=== PATIENT | male | born 1970 | race Caucasian/White ===

== ENCOUNTER 2016-05-05 06:56 | Emergency (ER) | payer MEDICARE ==
[2016-05-05] MEDS ORDERED: cefTRIAXone 2 GM, Lidocaine 1% 4.2 ML IM ONE ×2 (07:20)
--- NOTE | 2016-05-05 07:22 | EDM.PDOC ---
ED HPI GENERAL MEDICAL PROBLEM - General Chief Complaint: General Stated Complaint: abscessed tooth Time Seen by Provider: 05/05/16 07:15 Source of Information: Reports: Patient History Limitations: Reports: No limitations - History of Present Illness INITIAL COMMENTS - FREE TEXT/NARRATIVE: Patient states face and jaw pain started on Tuesday and has progressively worsened. He also states diarrhea and nausea started on Tuesday. He has not been seen by a dentist or walk in clinic. He denies chills, fever, headaches. Also denies any chest pain, neck pain, shortness of breath. Does have some ear pain on the left side. Abscess located on the right side. States he can't afford a dentist. Onset: sudden Onset Date: 05/02/16 Duration: Getting worse Location: Reports: face (right cheek) Quality: Reports: Ache Severity: moderate Improves with: Reports: Medication Worsens with: Reports: Eating Associated Symptoms: Reports: nausea/vomiting (nausea and diarrhea since Tuesday) - Related Data Allergies Allergy/AdvReac Type Severity Reaction Status Date / Time No Known Allergies Allergy Verified 12/07/14 19:52 Home Meds: Home Meds ClonazePAM [KlonoPIN] 1 mg PO QPM 05/05/13 [History] ClonazePAM [KlonoPIN] 1.5 mg PO BEDTIME 05/05/13 [History] ClonazePAM [KlonoPIN] 1.5 mg PO QAM 05/05/13 [History] ARIPiprazole [Abilify] 15 mg PO DAILY 09/18/13 [History] Benztropine Mesylate 1 tab PO BID 09/18/13 [History] Cholecalciferol (Vitamin D3) [Vitamin D3] 1 cap PO DAILY 09/18/13 [History] Ferrous Sulfate [Feosol] 325 mg PO DAILY 09/18/13 [History] Folic Acid 1 mg PO DAILY 09/18/13 [History] Hydrochlorothiazide [Hydrochlorothiazide] 1 tab PO DAILY 09/18/13 [History] Insulin Glarg,Human.Rec.Analog [Lantus] 10 units SQ DAILY 09/18/13 [History] Losartan [Cozaar] 2 tab PO DAILY 09/18/13 [History] Metoprolol Tartrate [Lopressor] 1.5 tab PO DAILY 09/18/13 [History] OXcarbazepine [Oxcarbazepine] 2 tab PO DAILY 09/18/13 [History] [place]-3/DHA/Epa/Fish Oil [[place]-3 Fish Oil 1,000 MG Sfgl] 1 cap PO DAILY [History] Omeprazole [Omeprazole] 1 tab PO DAILY 09/18/13 [History] metFORMIN [Glucophage] 1 tab PO BID 09/18/13 [History] traZODone 100 mg PO BEDTIME 09/18/13 [History] Cephalexin [Keflex] 500 mg PO QID #28 capsule 12/07/14 [Rx] Past Medical History Other Psychiatric History: self harm Social & Family History - Tobacco Use Smoking Status *Q: Never Smoker Second Hand Smoke Exposure: No - Alcohol Use Days Per Week of Alcohol Use: 0 - Recreational Drug Use Recreational Drug Use: No ED ROS GENERAL - Review of Systems Review Of Systems: See Below Constitutional: Reports: no symptoms HEENT: Reports: Dental pain Respiratory: Reports: no symptoms Cardiovascular: Reports: No symptoms Endocrine: Reports: no symptoms GI/Abdominal: Reports: Diarrhea, Nausea : Reports: no symptoms Musculoskeletal: Reports: no symptoms Skin: Reports: no symptoms Neurological: Reports: dizziness Psychiatric: Reports: No symptoms Hematologic/Lymphatic: Reports: no symptoms Immunologic: Reports: no symptoms ED EXAM, GENERAL - Physical Exam Exam: See Below Exam Limited By: No limitations General Appearance: alert, WD/WN, mild distress Eye Exam: bilateral eye: EOMI, PERRL Ears: normal TMs Nose: normal inspection Throat/Mouth: Normal lips, Normal oropharynx, Normal voice, No airway compromise. No: Normal teeth, Normal gums Head: atraumatic, facial swelling Neck: supple, non-tender, full range of motion. No: normal inspection (right sided cheek edema down to the superior neck), lymphadenopathy (R) Respiratory/Chest: no respiratory distress, lungs clear, normal breath sounds, no accessory muscle use Cardiovascular: normal peripheral pulses, regular rate, rhythm Neurological: alert, oriented, CN II-XII intact, normal cognition, normal gait, normal reflexes, no motor/sensory deficits Psychiatric: normal affect, normal mood Skin Exam: Warm, Dry, Intact, Normal color, No rash Lymphatic: no adenopathy Course - Re-Assessments/Exams Free Text/Narrative Re-Assessment/Exam: 05/05/16 07:36 2 gm rocephin injection given, percocet 5/325 oral given, augmentin bid x 10 days prescribed Departure - Departure Time of Disposition: 07:45 Disposition: Home, Self-Care 01 Condition: good Clinical Impression: Abscessed tooth Instructions: Dental Abscess, [id number] Additional Instructions: Please take the full course of antibiotics to prevent antibiotic resistance. Alternate tylenol with aleve for pain control Follow up with your primary provider in 2 weeks to be sure the infection is cleared You really need to see a dentist to have your teeth removed or you will continue to struggle with recurrent tooth abscesses. Most dentists will be willing to work out a payment schedule. Please be aware of any high fevers, chills, that can indicate a systemic infection Please call us with any questions or concerns - Problem List & Annotations (1) Abscessed tooth SNOMED Code(s): 097508346 Code(s): K04.7 - PERIAPICAL ABSCESS WITHOUT SINUS Status: Acute Priority : Low Current Visit: Yes - Problem List Review Problem List Initiated/Reviewed/Updated: Yes - Assessment/Plan Assessment:: Tooth abscess Plan: Please take the full course of antibiotics to prevent antibiotic resistance. Alternate tylenol with aleve for pain control Follow up with your primary provider in 2 weeks to be sure the infection is cleared You really need to see a dentist to have your teeth removed or you will continue to struggle with recurrent tooth abscesses. Most dentists will be willing to work out a payment schedule. Please be aware of any high fevers, chills, that can indicate a systemic infection Please call us with any questions or concerns
[2016-05-05] MEDS ORDERED: Acetaminophen/oxyCODONE 325-5 MG Tab PO ONE (07:33)
[2016-05-05 17:51] VITALS: BP 148/70
== END 2016-05-05 08:10 | disposition home or self-care (01) ==
LOC: VM.ED 06:56
DX: K00.0 Anodontia (principal); Z79.899 Other long term (current) drug therapy
CPT/HCPCS: 96372; 99282; A9270; J0696; 99283-GF

== ENCOUNTER 2023-10-31 13:59 | Emergency (ER) | payer MEDICARE, OTHER ==
[2023-10-31 14:32] VITALS: BP 139/98; PULSE 72
== END 2023-10-31 14:14 | disposition home or self-care (01) ==
LOC: VM.ED 13:59
DX: S31.119A Laceration without foreign body of abdominal wall, unspecified quadrant without penetration into peritoneal cavity, initial encounter (principal); I10 Essential (primary) hypertension; E78.00 Pure hypercholesterolemia, unspecified; E11.9 Type 2 diabetes mellitus without complications; K21.9 Gastro-esophageal reflux disease without esophagitis; E66.9 Obesity, unspecified; Z79.899 Other long term (current) drug therapy; Z79.84 Long term (current) use of oral hypoglycemic drugs; Z79.82 Long term (current) use of aspirin; Z79.4 Long term (current) use of insulin; Z68.36 Body mass index [BMI] 36.0-36.9, adult
CPT/HCPCS: 99282

== ENCOUNTER 2025-02-01 11:29 | Emergency (ER) | payer MEDICARE, OTHER ==
[2025-02-01] MEDS ORDERED: Sodium Chloride 0.9% 10 ML Syringe FLUSH PRN (11:38)
[2025-02-01 11:52] LABS: BASOPHILS ABSOLUTE AUTO 0.0 x10^3/uL (0.0-0.2); BASOPHILS PERCENT AUTO 0.3 % (0.2-1.2); EOSINOPHILS ABSOLUTE AUTO 0.1 x10^3/uL (0.0-0.5); EOSINOPHILS PERCENT AUTO 1.3 % (0.0-4.0); IMMATURE GRAN ABSOLUTE AUTO 0.04 x10^3/uL (0.00-0.07); IMMATURE GRAN PERCENT AUTO 0.60 % (0.00-0.43); LYMPHOCYTES ABSOLUTE AUTO 1.6 x10^3/uL (1.0-4.8); LYMPHOCYTES PERCENT AUTO 22.1 % (25.0-50.0); MONOCYTES ABSOLUTE AUTO 0.5 x10^3/uL (0.0-0.8); MONOCYTES PERCENT AUTO 6.6 % (2.0-11.0); NEUTROPHILS ABSOLUTE AUTO 5.0 x10^3/uL (1.8-7.7); NEUTROPHILS PERCENT AUTO 69.1 % (50.0-80.0); PLATELET COUNT,PLT 182 x10^3/uL (130-400); RED BLOOD CELL COUNT 5.63 x10^6/uL (4.5-6.0); WHITE BLOOD CELL COUNT,WBC 7.2 x10^3/uL (4.0-10.0)
[2025-02-01 12:13] LABS: A/G RATIO 1.17; ALANINE AMINOTRANSFERASE,ALT 66.0 U/L (16-63); ASPARTATE AMNIOTRANSFERASE,AST 52.0 U/L (15-37); BILIRUBIN TOTAL 0.6 mg/dL (0.2-1.0); BLOOD UREA NITROGEN,BUN 19.0 mg/dL (7-18); CARBON DIOXIDE,CO2 29.0 mmol/L (21-32); CHLORIDE,CL 100.0 mmol/L (98-107); CREATININE 1.1 mg/dL (0.70-1.30); EST CRCL DRUG DOSING (CG) 85.24 mL/min; GLUCOSE RANDOM 195.0 mg/dL (70-99); POTASSIUM,K 4.1 mmol/L (3.5-5.1); PROTEIN TOTAL,TP 7.8 g/dL (6.4-8.2); SODIUM,NA 139.0 mmol/L (136-145)
[2025-02-01 12:14] LABS: ESTIMATED GFR 80.0 mL/min (>=60)
[2025-02-01] MEDS: Iopamidol 612 MG/ML 100 ML Bottle IVPUSH ONE (12:54)
[2025-02-01] MEDS: Ondansetron 4 MG/2 ML SDV IVPUSH ONE (13:01)
[2025-02-01 14:24] VITALS: BP 151/86; PULSE 87
== END 2025-02-01 14:51 | disposition short-term general hospital (02) ==
LOC: VM.ED 11:29
DX: S22.41XA Multiple fractures of ribs, right side, initial encounter for closed fracture (principal); S27.0XXA Traumatic pneumothorax, initial encounter; S00.01XA Abrasion of scalp, initial encounter; S80.212A Abrasion, left knee, initial encounter; S80.211A Abrasion, right knee, initial encounter; S60.512A Abrasion of left hand, initial encounter; I10 Essential (primary) hypertension; E78.00 Pure hypercholesterolemia, unspecified; K21.9 Gastro-esophageal reflux disease without esophagitis; Z79.899 Other long term (current) drug therapy; Z79.84 Long term (current) use of oral hypoglycemic drugs; Z79.82 Long term (current) use of aspirin; V18.0XXA Pedal cycle driver injured in noncollision transport accident in nontraffic accident, initial encounter; X50.0XXA Overexertion from strenuous movement or load, initial encounter; Y93.55 Activity, bike riding
CPT/HCPCS: 36415; 70450; 71260; 72125; 72128; 80053; 85025; 96374; 96375; 99284; 99285-25; J2270; J2405; Q9967